=== PATIENT | male | born 1990 | race Caucasian/White ===

== ENCOUNTER 2017-04-22 05:31 | Emergency (ER) | payer BC, MEDICAID ==
[2017-04-22] MEDS ORDERED: Sodium Chloride 0.9% 10 ML Syringe FLUSH PRN (05:36)
[2017-04-22] MEDS ORDERED: Sodium Chloride 0.9% 1,000 ML IV ONE (05:39)
[2017-04-22] MEDS ORDERED: HYDROmorphone 1 MG/ML Syringe IVPUSH ONE ×3 (05:39→08:53)
[2017-04-22] MEDS ORDERED: Ondansetron 4 MG/2 ML SDV IVPUSH ONE (05:39)
[2017-04-22] MEDS ORDERED: Ketorolac 30 MG/ML SDV IVPUSH ONE (06:24)
[2017-04-22 06:32] LABS: CHLORIDE,CL 103 mmol/L (98-107); SODIUM,NA 141 mmol/L (136-145)
--- NOTE | 2017-04-22 07:12 | EDM.PDOC ---
ED HPI GENERAL MEDICAL PROBLEM - General Chief Complaint: Genitourinary Problem Stated Complaint: Abdominal Pain Time Seen by Provider: 04/22/17 05:31 - History of Present Illness INITIAL COMMENTS - FREE TEXT/NARRATIVE: DICTATED BY ISAMAR ELKINS PA-C Lower Abdomen Pain Score (Numeric/FACES): 9 - Related Data Allergies Allergy/AdvReac Type Severity Reaction Status Date / Time yvan Allergy Rash Verified 04/22/17 05:32 Home Meds: Home Meds . [No Known Home Meds] 04/22/17 [History] Past Medical History Genitourinary History: Reports: Other (See Below) Other Genitourinary History: Congenital Kidney Problem Psychiatric History: Reports: Suicide Attempt Social & Family History - Tobacco Use Smoking Status *Q: Never Smoker - Recreational Drug Use Recreational Drug Use: No ED ROS GENERAL - Review of Systems Review Of Systems: See Below (DICTATED BY ISAMAR ELKINS PA-C) ED EXAM, RENAL/ - Physical Exam Exam: See Below (DICTATED BY ISAMAR ELKINS PA-C) Course - Vital Signs Last Recorded V/S: Last Vital Signs Temp 35.7 C 04/22/17 06:50 Pulse 95 04/22/17 06:50 Resp 18 04/22/17 06:50 BP 148/98 H 04/22/17 06:50 Pulse Ox 99 04/22/17 06:50 - Orders/Labs/Meds Orders: Active Orders 24 hr Category Date Time Status Bladder Scan [RC] ONETIME Care 04/22/17 08:53 Active DC Knight Catheter [Urinary Catheter Removal] [RC] Per Care 04/22/17 09:12 Active Unit Routine Abdomen Pelvis wo Cont [CT] Stat Exams 04/22/17 06:48 Taken Sodium Chloride 0.9% [Normal Saline] 1,000 ml Med 04/22/17 09:00 Active IV ASDIRECTED Sodium Chloride 0.9% [Saline Flush] Med 04/22/17 05:36 Active 10 ml FLUSH ASDIRECTED PRN Peripheral IV Insertion Adult [OM.PC] Routine Oth 04/22/17 05:38 Ordered Medication Orders Sodium Chloride (Normal Saline) 1,000 mls @ 999 mls/hr IV ASDIRECTED JOSE ANTONIO Last Admin: 04/22/17 09:06 Dose: 999 mls/hr Sodium Chloride (Saline Flush) 10 ml FLUSH ASDIRECTED PRN PRN Reason: Keep Vein Open Last Admin: 04/22/17 05:56 Dose: 10 ml Labs: Laboratory Tests 04/22/17 04/22/17 04/22/17 Range/Units 05:59 05:59 05:59 WBC 7.2 (4.0-10.0) x10^3/uL RBC 5.08 (4.5-6.0) x10^6/uL Hgb 15.6 (14.0-18.0) g/dL Hct 43.6 (40.0-52.0) % MCV 85.8 (78.0-93.0) fL MCH 30.7 (26.0-32.0) pg MCHC 35.8 (32.0-36.0) g/dL RDW Coeff of Scotty 12.5 (10.0-15.0) % Plt Count 283 (130-400) x10^3/uL Neut % (Auto) 47.6 L (50.0-80.0) % Lymph % (Auto) 38.9 (25.0-50.0) % [place] % (Auto) 10.7 (2.0-11.0) % Eos % (Auto) 2.1 (0.0-4.0) % Baso % (Auto) 0.7 (0.2-1.2) % PT 10.5 (10.0-12.8) SEC INR 0.9 L (2.0-3.5) Sodium 141 (136-145) mmol/L Potassium 3.5 (3.5-5.1) mmol/L Chloride 103 (98-107) mmol/L Carbon Dioxide 23 (21-32) mmol/L BUN 17 (7-18) mg/dL Creatinine 1.3 (0.70-1.30) mg/dL Est Cr Clr Drug Dosing TNP Estimated GFR (MDRD) > 60 Glucose 104 (74-106) mg/dL Calcium 8.2 L (8.5-10.1) mg/dL Corrected Calcium 8.12 L (8.5-10.1) mg/dL Total Bilirubin 0.5 (0.2-1.0) mg/dL AST 21 (15-37) U/L ALT 43 (16-63) U/L Alkaline Phosphatase 97 (46-116) U/L C-Reactive Protein 0.8 (<=0.9) mg/dL Total Protein 7.8 (6.4-8.2) g/dL Albumin 4.1 (3.4-5.0) g/dL Globulin 3.7 Albumin/Globulin Ratio 1.11 Urine Color (YELLOW) Urine Appearance (CLEAR) Urine pH (5.0-8.0) Ur Specific [place] Urine Protein (NEGATIVE) mg/dL Urine Glucose (UA) (NEGATIVE) mg/dL Urine Ketones (NEGATIVE) mg/dL Urine Occult Blood (NEGATIVE) Urine Nitrite (NEGATIVE) Urine Bilirubin (NEGATIVE) Urine Urobilinogen (0.2) EU/dL Ur Leukocyte Esterase (NEGATIVE) Urine RBC (NOT SEEN) /HPF Urine WBC (NOT SEEN) /HPF Ur Squamous Epith Cells (NEGATIVE) /HPF Ur Renal Epithelial Cell (NEGATIVE) /HPF Urine Bacteria (NEGATIVE) /HPF Epithelial Casts Urine Mucus (NEGATIVE) /LPF 04/22/17 Range/Units 06:30 WBC (4.0-10.0) x10^3/uL RBC (4.5-6.0) x10^6/uL Hgb (14.0-18.0) g/dL Hct (40.0-52.0) % MCV (78.0-93.0) fL MCH (26.0-32.0) pg MCHC (32.0-36.0) g/dL RDW Coeff of Scotty (10.0-15.0) % Plt Count (130-400) x10^3/uL Neut % (Auto) (50.0-80.0) % Lymph % (Auto) (25.0-50.0) % [place] % (Auto) (2.0-11.0) % Eos % (Auto) (0.0-4.0) % Baso % (Auto) (0.2-1.2) % PT (10.0-12.8) SEC INR (2.0-3.5) Sodium (136-145) mmol/L Potassium (3.5-5.1) mmol/L Chloride (98-107) mmol/L Carbon Dioxide (21-32) mmol/L BUN (7-18) mg/dL Creatinine (0.70-1.30) mg/dL Est Cr Clr Drug Dosing Estimated GFR (MDRD) Glucose (74-106) mg/dL Calcium (8.5-10.1) mg/dL Corrected Calcium (8.5-10.1) mg/dL Total Bilirubin (0.2-1.0) mg/dL AST (15-37) U/L ALT (16-63) U/L Alkaline Phosphatase (46-116) U/L C-Reactive Protein (<=0.9) mg/dL Total Protein (6.4-8.2) g/dL Albumin (3.4-5.0) g/dL Globulin Albumin/Globulin Ratio Urine Color Dark yellow H (YELLOW) Urine Appearance Cloudy H (CLEAR) Urine pH 5.5 (5.0-8.0) Ur Specific [place] >=1.030 Urine Protein 100 H (NEGATIVE) mg/dL Urine Glucose (UA) Negative (NEGATIVE) mg/dL Urine Ketones Negative (NEGATIVE) mg/dL Urine Occult Blood Large H (NEGATIVE) Urine Nitrite Negative (NEGATIVE) Urine Bilirubin Small H (NEGATIVE) Urine Urobilinogen 1.0 (0.2) EU/dL Ur Leukocyte Esterase Negative (NEGATIVE) Urine RBC 50-75 H (NOT SEEN) /HPF Urine WBC 0-5 (NOT SEEN) /HPF Ur Squamous Epith Cells Moderate H (NEGATIVE) /HPF Ur Renal Epithelial Cell Rare H (NEGATIVE) /HPF Urine Bacteria Not seen (NEGATIVE) /HPF Epithelial Casts Few Urine Mucus Moderate H (NEGATIVE) /LPF Meds: Medications Generic Name Dose Route Start Last Admin Trade Name Freq PRN Reason Stop Dose Admin Sodium Chloride 1,000 mls @ 999 mls/hr 04/22/17 09:00 04/22/17 09:06 Normal Saline IV 999 mls/hr ASDIRECTED JOSE ANTONIO Administration Sodium Chloride 10 ml 04/22/17 05:36 04/22/17 05:56 Saline Flush FLUSH 10 ml ASDIRECTED PRN Administration Keep Vein Open Discontinued Medications Generic Name Dose Route Start Last Admin Trade Name Freq PRN Reason Stop Dose Admin Hydromorphone HCl 1 mg 04/22/17 05:39 04/22/17 05:55 Dilaudid IVPUSH 04/22/17 05:40 1 mg ONETIME ONE Administration Hydromorphone HCl 1 mg 04/22/17 06:24 04/22/17 06:31 Dilaudid IVPUSH 04/22/17 06:25 1 mg ONETIME ONE Administration Hydromorphone HCl 1 mg 04/22/17 08:53 04/22/17 09:06 Dilaudid IVPUSH 04/22/17 08:54 1 mg ONETIME ONE Administration Sodium Chloride 1,000 mls @ 1,000 mls/hr 04/22/17 05:39 04/22/17 05:52 Normal Saline IV 04/22/17 06:38 1,000 mls/hr .BOLUS ONE Administration Ketorolac Tromethamine 30 mg 04/22/17 06:24 04/22/17 06:31 Toradol IVPUSH 04/22/17 06:25 30 mg ONETIME ONE Administration Ondansetron HCl 4 mg 04/22/17 05:39 04/22/17 05:55 Zofran IVPUSH 04/22/17 05:40 4 mg ONETIME ONE Administration - Radiology Interpretation Free Text/Narrative:: See scanned report in EMR CT Results Date: 04/22/17 CT Results Time: 08:36 Departure - Departure Time of Disposition: 09:29 Disposition: DC/Tfer to Acute Hospital 02 Condition: good Clinical Impression: Ureteral stone with hydronephrosis, Encounter for Knight catheter fitting and adjustment, Pelvic pain in male - Discharge Information Referrals: PCP,None [Primary Care Provider] - Forms: Interfacility Transfer FACUNDO MLP Sign Off - Signature Requirements MLP Sign Off: Yes ED Communication - ED Communication Date/Time Date: 04/22/17 Time Called: 09:06 - Discussed Case With (1) Discussed Case With (1): Admitting Provider Person/s Notified (1): Dane Banuelos - Conversation Summary Admitting Provider Agreed to Patient's Admission: Yes Patient Aware of Amendments fo Care Plan: Yes Summary Comment: Discussed case with Urology. Patient wishes to be sent to [place] for immediate intervention of kidney stone. - Problem List Review Problem List Initiated/Reviewed/Updated: Yes - My Orders Last 24 Hours: My Active Orders 04/22/17 08:53 Bladder Scan [RC] ONETIME 04/22/17 09:00 Sodium Chloride 0.9% [Normal Saline] 1,000 ml IV ASDIRECTED 04/22/17 09:12 DC Knight Catheter [Urinary Catheter Removal] [RC] Per Unit Routine - Assessment/Plan Last 24 Hours: My Active Orders 04/22/17 08:53 Bladder Scan [RC] ONETIME 04/22/17 09:00 Sodium Chloride 0.9% [Normal Saline] 1,000 ml IV ASDIRECTED 04/22/17 09:12 DC Knight Catheter [Urinary Catheter Removal] [RC] Per Unit Routine
[2017-04-22] MEDS ORDERED: Sodium Chloride 0.9% 1,000 ML IV SCH (09:00)
[2017-04-22 09:57] VITALS: BP 140/82
--- NOTE | 2017-05-11 08:27 | ER ---
Date of Service: 04/22/2017 SUBJECTIVE: Daniel presented to the emergency room with complaints of abdominal pain. He also states that he feels as though he is unable to void. He states that the discomfort was acute in onset and awoke him from sleep. He states that the discomfort is located primarily on the left side of his abdomen and radiates into his groin area. The patient states he has not ever experienced discomfort like this in the past. PAST MEDICAL HISTORY: None. MEDICATIONS: None. ALLERGIES: To yvan. REVIEW OF SYSTEMS: General: No fever or chills. HEENT: No sore throat, rhinorrhea, or congestion. Respiratory: No shortness of breath. Cardiac: Denies any substernal chest pain. No jaw, arm, neck, or back pain. GI/: Complaints of left-sided abdominal pain with radiation into his groin and inability to void. Musculoskeletal: No myalgias or arthralgias. PHYSICAL EXAMINATION: General: This is a 27-year-old male patient, who is in no acute distress. Vital Signs: Blood pressure is 132/88, pulse rate is 92, respiratory rate 16, O2 saturations 99%. Skin: Warm, pink, and dry. HEENT: Head is normocephalic, atraumatic. Mouth, oral mucosa is moist. Lungs: Clear to auscultation. Heart: Regular rate and rhythm. Abdomen: Soft, tender in the hypogastric area. There is no masses noted. There is no hepatosplenomegaly noted. Extremities: Without edema. Neurologic: He is alert and oriented, answers all questions appropriately. His speech is fluent. His gait is within normal limits. LABORATORY DATA: WBC is 7.2, hemoglobin is 15.6, platelets are 283. PT is 10.5, INR is 0.9. Sodium is 141, potassium is 3.5, chloride is 103, bicarb is 23, BUN is 17, creatinine is 1.3. GFR is greater than 60. Glucose is 104, calcium is 8.2, corrected calcium is 8.12, total bilirubin is 0.5. AST is 21, ALT is 43, alkaline phosphatase is 97. C-reactive protein is 0.8. Total protein is 7.8. Urinalysis shows specific gravity of 1.030. Did have 100 protein, did have negative ketones and glucose. Did have large occult blood, small bilirubin, negative leukocyte esterase, and nitrites. EMERGENCY ROOM COURSE: IV access was established. He was given IV Dilaudid, Zofran, and Toradol 30 mg IV. He was also given Zofran for nausea. I did perform a bladder scan, which did show several 100 mL of urine in his bladder. Subsequently, a Knight catheter was placed with clear urine return, but minimal improvement in his discomfort. CT scan of the patient's abdomen and pelvis was obtained. Please refer to Odilon Freed's documentation regarding the results of the CT scan and disposition of this patient. ASSESSMENT: Urinary retention and right-sided abdominal pain. PLAN: Again, please refer to Odilon Freed's dictation regarding the disposition of this patient. MWK: 05/10/2017 22:37:22 MODL: 05/10/2017 22:52:24 /[id number]
== END 2017-04-22 10:40 | disposition short-term general hospital (02) ==
LOC: VM.ED 05:31
DX: R33.9 Retention of urine, unspecified (principal); R10.9 Unspecified abdominal pain
CPT/HCPCS: 36415; 74176; 80053; 81001; 85025; 85610; 86140; 96361; 96374; 96375; 96376; 99284; 99285; J1170; J1885; J2405; J7030; J7050

== ENCOUNTER 2018-02-01 17:51 | Emergency (ER) | payer MEDICAID ==
--- NOTE | 2018-02-01 18:36 | EDM.PDOC ---
ED HPI GENERAL MEDICAL PROBLEM - General Chief Complaint: Behavioral/Psych Time Seen by Provider: 02/01/18 18:02 Source of Information: Reports: Patient History Limitations: Reports: No Limitations - History of Present Illness INITIAL COMMENTS - FREE TEXT/NARRATIVE: Pt. presents to ER with complaints of visual and sensory hallucinations, as well as self-harming behavior. He is diagnosed with schozotypal personality disorder, major depressive disorder, and dependent personality disorder. Pt. states that he has a long history of both auditory and visual hallucinations, with the recent increase in the frequency and severity of the hallucinations. He states that he felt there was "something in his L forearm" and he used a razor blade to attempt to remove it. Pt. states that he is currently on olanzapine 20mg every evening, as well as lexapro 20mg daily and trazadone 25mg at bedtime. He Denies any suicidal ideation, but feels at though he is at risk for self harm if allowed to go home on his own, stating he is afraid he will "take it too far." Pt. sees CASSIE Rios at [facility] in [place], as well as Dr. Migdalia DO who is a psychiatrist who sees patients in [place] and [place]. The pt. has only seen him once, last week, to establish care. Pt. states that he has been experiencing symptoms of schizotypal behavior for approx 10 years, but is states the the symptoms are getting much worse, happening several times a week, and with increased severity. He was seen in our ER in June with a similar event. At that time he had cut his wrist but he did not feel as though he was a threat any longer. He states that at that time he was on Risperdal. He was subsequently transitioned to olanzapine after that event. He denies any recent illness, cough, fever or chills. He denies any nausea, vomiting or diarrhea. He denies any headache or other neurological symptoms. Pt. states that he has never had inpatient psychiatric care in past, and started treatment for his psychiatric problems this year, despite having hallucinations for approx. 10 years. Onset: Today Onset Date: 02/01/18 Onset Time: 18:56 - Related Data Allergies Allergy/AdvReac Type Severity Reaction Status Date / Time bee venom protein (honey bee) Allergy Anaphylactic Verified 02/01/18 18:33 Shock yvan Allergy Rash Verified 02/01/18 18:06 Home Meds: Home Meds Escitalopram Oxalate [Lexapro] 20 mg PO DAILY 10/09/17 [History] risperiDONE [RisperiDAL] 1 mg pe DAILY 10/09/17 [History] OLANZapine [ZyPREXA] 20 mg PO DAILY 02/01/18 [History] Past Medical History Genitourinary History: Reports: Other (See Below) Other Genitourinary History: Congenital Kidney Problem Psychiatric History: Reports: Anxiety, Depression, Suicide Attempt, Suicidal Ideation Other Psychiatric History: personality disorder. schizotypal personality disorder - Past Surgical History HEENT Surgical History: Reports: Adenoidectomy, Tonsillectomy Male Surgical History: Reports: Nephrectomy Social & Family History - Tobacco Use Smoking Status *Q: Never Smoker - Recreational Drug Use Recreational Drug Use: No ED ROS GENERAL - Review of Systems Review Of Systems: See Below Constitutional: Reports: No Symptoms HEENT: Reports: No Symptoms Respiratory: Reports: No Symptoms Cardiovascular: Reports: No Symptoms Endocrine: Reports: No Symptoms GI/Abdominal: Reports: No Symptoms : Reports: No Symptoms Musculoskeletal: Reports: No Symptoms Skin: Reports: No Symptoms Neurological: Reports: No Symptoms Psychiatric: Reports: Anxiety, Depression, Hallucinations Hematologic/Lymphatic: Reports: No Symptoms Immunologic: Reports: No Symptoms ED EXAM, GENERAL - Physical Exam Exam: See Below Exam Limited By: No Limitations General Appearance: Alert, WD/WN, No Apparent Distress Eye Exam: Bilateral Eye: EOMI, Normal Fundi, Normal Inspection, PERRL Ears: Normal External Exam, Normal TMs Nose: Normal Inspection, Normal Mucosa, No Blood Throat/Mouth: Normal Teeth, Normal Gums, Normal Voice, No Airway Compromise Head: Atraumatic, Normocephalic Neck: Normal Inspection, Supple, Non-Tender, Full Range of Motion Respiratory/Chest: No Respiratory Distress, Lungs Clear, Normal Breath Sounds, No Accessory Muscle Use, Chest Non-Tender Cardiovascular: Normal Peripheral Pulses, Regular Rate, Rhythm, No Edema, No Gallop, No JVD, No Murmur, No Rub GI/Abdominal: Normal Bowel Sounds, Soft, Non-Tender, No Organomegaly, No Distention, No Abnormal Bruit, No Mass (Male) Exam: Deferred Rectal (Males) Exam: Deferred Back Exam: Normal Inspection, Full Range of Motion Extremities: Normal Inspection, Normal Range of Motion, Non-Tender, Normal Capillary Refill, No Pedal Edema Neurological: Alert, Oriented, CN II-XII Intact, Normal Cognition, Normal Gait, Normal Reflexes, No Motor/Sensory Deficits Psychiatric: Normal Affect, Normal Mood, Anxious, Other (insight is normal; is concerned about his health and volunteers to get health. Is not resistive to care and feels he needs inpatient care.) Skin Exam: Warm, Dry, Intact, Normal Color, No Rash Lymphatic: No Adenopathy Course - Vital Signs Last Recorded V/S: Last Vital Signs Temp 36.4 C 02/01/18 17:55 Pulse 89 02/01/18 17:55 Resp 18 02/01/18 17:55 BP 149/82 H 02/01/18 17:55 Pulse Ox 95 02/01/18 17:55 - Orders/Labs/Meds Labs: Laboratory Tests 02/01/18 02/01/18 02/01/18 Range/Units 18:19 18:38 18:45 WBC 8.6 (4.0-10.0) x10^3/uL RBC 5.18 (4.5-6.0) x10^6/uL Hgb 15.6 (14.0-18.0) g/dL Hct 44.8 (40.0-52.0) % MCV 86.5 (78.0-93.0) fL MCH 30.1 (26.0-32.0) pg MCHC 34.8 (32.0-36.0) g/dL RDW Coeff of Scotty 13.8 (10.0-15.0) % Plt Count 324 (130-400) x10^3/uL Neut % (Auto) 54.6 (50.0-80.0) % Lymph % (Auto) 32.3 (25.0-50.0) % [place] % (Auto) 10.4 (2.0-11.0) % Eos % (Auto) 2.2 (0.0-4.0) % Baso % (Auto) 0.5 (0.2-1.2) % Sodium (136-145) mmol/L Potassium (3.5-5.1) mmol/L Chloride (98-107) mmol/L Carbon Dioxide (21-32) mmol/L BUN (7-18) mg/dL Creatinine (0.70-1.30) mg/dL Est Cr Clr Drug Dosing Estimated GFR (MDRD) Glucose (74-106) mg/dL Calcium (8.5-10.1) mg/dL Corrected Calcium (8.5-10.1) mg/dL Total Bilirubin (0.2-1.0) mg/dL AST (15-37) U/L ALT (16-63) U/L Alkaline Phosphatase (46-116) U/L Total Protein (6.4-8.2) g/dL Albumin (3.4-5.0) g/dL Globulin Albumin/Globulin Ratio TSH, Ultra Sensitive (0.358-3.74) uIU/mL Urine Color Yellow (YELLOW) Urine Appearance Clear (CLEAR) Urine pH 6.0 (5.0-8.0) Ur Specific [place] 1.025 Urine Protein 30 H (NEGATIVE) mg/dL Urine Glucose (UA) Negative (NEGATIVE) mg/dL Urine Ketones Negative (NEGATIVE) mg/dL Urine Occult Blood Negative (NEGATIVE) Urine Nitrite Negative (NEGATIVE) Urine Bilirubin Negative (NEGATIVE) Urine Urobilinogen 0.2 (0.2) EU/dL Ur Leukocyte Esterase Negative (NEGATIVE) Urine RBC 0-5 (NOT SEEN) /HPF Urine WBC 0-5 (NOT SEEN) /HPF Ur Squamous Epith Cells Not seen (NEGATIVE) /HPF Urine Bacteria Rare (NEGATIVE) /HPF Urine Mucus Few H (NEGATIVE) /LPF Urine Opiates Screen Negative (NEAGTIVE) Ur Buprenorphine Scrn Negative (NEGATIVE) Ur Oxycodone Screen Negative (NEGATIVE) Urine Methadone Screen Negative (NEGATIVE) Ur Barbiturates Screen Negative (NEGATIVE) Ur Tricyclics Screen Negative (NEGATIVE) Ur Amphetamine Screen Negative (NEGATIVE) U Methamphetamines Scrn Negative (NEGATIVE) Urine MDMA Screen Negative (NEGATIVE) U Benzodiazepines Scrn Negative (NEGATIVE) U Cocaine Metab Screen Negative (NEGATIVE) U Marijuana (THC) Screen Negative (NEGATIVE) Ethyl Alcohol (0-3) mg/dL 02/01/18 Range/Units 18:45 WBC (4.0-10.0) x10^3/uL RBC (4.5-6.0) x10^6/uL Hgb (14.0-18.0) g/dL Hct (40.0-52.0) % MCV (78.0-93.0) fL MCH (26.0-32.0) pg MCHC (32.0-36.0) g/dL RDW Coeff of Scotty (10.0-15.0) % Plt Count (130-400) x10^3/uL Neut % (Auto) (50.0-80.0) % Lymph % (Auto) (25.0-50.0) % [place] % (Auto) (2.0-11.0) % Eos % (Auto) (0.0-4.0) % Baso % (Auto) (0.2-1.2) % Sodium 141 (136-145) mmol/L Potassium 4.1 (3.5-5.1) mmol/L Chloride 104 (98-107) mmol/L Carbon Dioxide 27 (21-32) mmol/L BUN 21 H (7-18) mg/dL Creatinine 1.3 (0.70-1.30) mg/dL Est Cr Clr Drug Dosing TNP Estimated GFR (MDRD) > 60 Glucose 89 (74-106) mg/dL Calcium 8.7 (8.5-10.1) mg/dL Corrected Calcium 8.70 (8.5-10.1) mg/dL Total Bilirubin 0.3 (0.2-1.0) mg/dL AST 18 (15-37) U/L ALT 34 (16-63) U/L Alkaline Phosphatase 126 H (46-116) U/L Total Protein 8.5 H (6.4-8.2) g/dL Albumin 4.0 (3.4-5.0) g/dL Globulin 4.5 Albumin/Globulin Ratio 0.89 TSH, Ultra Sensitive 1.199 (0.358-3.74) uIU/mL Urine Color (YELLOW) Urine Appearance (CLEAR) Urine pH (5.0-8.0) Ur Specific [place] Urine Protein (NEGATIVE) mg/dL Urine Glucose (UA) (NEGATIVE) mg/dL Urine Ketones (NEGATIVE) mg/dL Urine Occult Blood (NEGATIVE) Urine Nitrite (NEGATIVE) Urine Bilirubin (NEGATIVE) Urine Urobilinogen (0.2) EU/dL Ur Leukocyte Esterase (NEGATIVE) Urine RBC (NOT SEEN) /HPF Urine WBC (NOT SEEN) /HPF Ur Squamous Epith Cells (NEGATIVE) /HPF Urine Bacteria (NEGATIVE) /HPF Urine Mucus (NEGATIVE) /LPF Urine Opiates Screen (NEAGTIVE) Ur Buprenorphine Scrn (NEGATIVE) Ur Oxycodone Screen (NEGATIVE) Urine Methadone Screen (NEGATIVE) Ur Barbiturates Screen (NEGATIVE) Ur Tricyclics Screen (NEGATIVE) Ur Amphetamine Screen (NEGATIVE) U Methamphetamines Scrn (NEGATIVE) Urine MDMA Screen (NEGATIVE) U Benzodiazepines Scrn (NEGATIVE) U Cocaine Metab Screen (NEGATIVE) U Marijuana (THC) Screen (NEGATIVE) Ethyl Alcohol < 3 (0-3) mg/dL Departure - Departure Time of Disposition: 21:40 Disposition: DC/Tfer to Psych Hosp/Unit 65 Clinical Impression: Schizotypal personality disorder, Anxiety, Self-harm, Depressive disorder, Hallucinations - Discharge Information Referrals: Trini Gray [employer]PER[employer]ILN [Primary Care Provider] - Forms: ED Department Discharge, Interfacility Transfer EMTALA
[2018-02-01 19:25] LABS: CHLORIDE,CL 104 mmol/L (98-107); SODIUM,NA 141 mmol/L (136-145)
== END 2018-02-01 21:39 ==
LOC: VM.ED 17:51
DX: F21 Schizotypal disorder (principal); Z91.018 Allergy to other foods; Z91.030 Bee allergy status; Z79.899 Other long term (current) drug therapy
CPT/HCPCS: 36415; 80053; 80305; 81001; 84443; 85025; 99284; G0480

== ENCOUNTER 2019-02-14 21:26 | Emergency (ER) | payer MEDICAID ==
--- NOTE | 2019-02-14 22:32 | EDM.PDOC ---
ED HPI GENERAL MEDICAL PROBLEM - General Chief Complaint: Abdominal Pain Stated Complaint: abdominal pain Time Seen by Provider: 02/14/19 21:50 Source of Information: Reports: Patient History Limitations: Reports: No Limitations - History of Present Illness INITIAL COMMENTS - FREE TEXT/NARRATIVE: Patient comes in the emergency department with severe sudden onset of left upper quadrant pain starting approximately 6 hours ago. Patient just recently had a laparoscopic Chapin procedure completed approximately 2 weeks ago. He states healing process has been relatively normal without any complications thus far. The sudden onset this afternoon of abdominal discomfort is reproducible and palpable. Also states it does cause nausea and guarding of the abdominal cavity. She denies having any issues with bowel movements. He also states that he does not have any concerns with urinary frequency, hesitancy or bleeding during urination. No recent fevers but did have chills yesterday. Onset: Sudden Quality: Reports: Sharp, Throbbing Improves with: Reports: Immobilization Worsens with: Reports: Movement Associated Symptoms: Reports: Nausea/Vomiting Left Upper Abdomen Pain Score (Numeric/FACES): 7 - Related Data Allergies Allergy/AdvReac Type Severity Reaction Status Date / Time bee venom protein (honey bee) Allergy Anaphylactic Verified 02/14/19 21:44 Shock yvan Allergy Rash Verified 02/14/19 21:44 Home Meds: Home Meds Escitalopram [Lexapro] 20 mg PO DAILY 02/14/19 [History] OLANZapine [ZyPREXA] 5 mg PO DAILY 02/14/19 [History] Past Medical History HEENT History: Reports: Impaired Vision Cardiovascular History: Reports: None Respiratory History: Reports: None Gastrointestinal History: Reports: Other (See Below) Other Gastrointestinal History: RECENT HX OF NAUSEA AND VOMITING Genitourinary History: Reports: Hydronephrosis, Other (See Below) Other Genitourinary History: Congenital Kidney Problem Musculoskeletal History: Reports: Back Pain, Chronic Neurological History: Reports: Headaches, Chronic, Migraines Psychiatric History: Reports: Anxiety, Depression, Schizophrenia, Suicide Attempt, Suicidal Ideation Other Psychiatric History: personality disorder. schizotypal personality disorder Endocrine/Metabolic History: Reports: Obesity/BMI 30+ Hematologic History: Reports: None Immunologic History: Reports: None Oncologic (Cancer) History: Reports: None - Past Surgical History Head Surgeries/Procedures: Reports: None HEENT Surgical History: Reports: Adenoidectomy, Tonsillectomy Male Surgical History: Reports: Nephrectomy Social & Family History - Tobacco Use Smoking Status *Q: Never Smoker ED ROS GENERAL - Review of Systems Review Of Systems: See Below Constitutional: Reports: No Symptoms HEENT: Reports: No Symptoms Respiratory: Reports: No Symptoms Cardiovascular: Reports: No Symptoms GI/Abdominal: Reports: Abdominal Pain : Reports: No Symptoms Musculoskeletal: Reports: No Symptoms Skin: Reports: No Symptoms Neurological: Reports: No Symptoms Psychiatric: Reports: No Symptoms Hematologic/Lymphatic: Reports: No Symptoms Immunologic: Reports: No Symptoms ED EXAM, GENERAL - Physical Exam Exam: See Below Exam Limited By: No Limitations General Appearance: Alert, WD/WN, No Apparent Distress Head: Atraumatic, Normocephalic Neck: Normal Inspection, Supple, Non-Tender, Full Range of Motion Respiratory/Chest: No Respiratory Distress, Lungs Clear, No Accessory Muscle Use , Chest Non-Tender Cardiovascular: Normal Peripheral Pulses, Regular Rate, Rhythm GI/Abdominal: Distended, Guarding, Tender, Abnormal Bowel Sounds Back Exam: Normal Inspection, Full Range of Motion Extremities: Normal Inspection, Normal Range of Motion, Normal Capillary Refill Neurological: Alert, Oriented, Normal Gait Psychiatric: Normal Affect, Normal Mood Skin Exam: Warm, Dry, Intact, Normal Color Course - Vital Signs Last Recorded V/S: Last Vital Signs Temp 36.9 C 02/14/19 21:30 Pulse 122 H 02/14/19 21:30 Resp 20 02/14/19 21:30 BP 135/85 02/14/19 21:30 Pulse Ox 97 02/14/19 21:30 - Orders/Labs/Meds Orders: Active Orders 24 hr Category Date Time Status Abdomen Pelvis wo Cont [CT] Stat Exams 02/14/19 22:19 Taken COMPREHENSIVE METABOLIC PN,CMP [CHEM] Stat Lab 02/14/19 22:56 Received UA RFX MARIBEL AND CULT IF INDIC [URIN] Stat Lab 02/14/19 22:51 Received Labs: Laboratory Tests 02/14/19 Range/Units 22:56 WBC 6.4 (4.0-10.0) x10^3/uL RBC 5.19 (4.5-6.0) x10^6/uL Hgb 14.8 (14.0-18.0) g/dL Hct 45.1 (40.0-52.0) % MCV 86.9 (78.0-93.0) fL MCH 28.5 (26.0-32.0) pg MCHC 32.8 (32.0-36.0) g/dL RDW Coeff of Scotty 14.1 (10.0-15.0) % Plt Count 312 (130-400) x10^3/uL Neut % (Auto) 54.6 (50.0-80.0) % Lymph % (Auto) 31.2 (25.0-50.0) % [place] % (Auto) 11.5 H (2.0-11.0) % Eos % (Auto) 1.9 (0.0-4.0) % Baso % (Auto) 0.8 (0.2-1.2) % Departure - Departure Time of Disposition: 23:30 Disposition: Home, Self-Care 01 Condition: Good Clinical Impression: Abdominal pain Qualifiers: Abdominal location: left upper quadrant Qualified Code(s): R10.12 - Left upper quadrant pain Constipation Qualifiers: Constipation type: unspecified constipation type Qualified Code(s): K59.00 - Constipation, unspecified - Discharge Information *PRESCRIPTION DRUG MONITORING PROGRAM REVIEWED*: Not Applicable *COPY OF PRESCRIPTION DRUG MONITORING REPORT IN PATIENT IVORY: Not Applicable Instructions: Constipation, Adult, Preventing Constipation After Surgery Referrals: Odilon Freed NP [Primary Care Provider] - Forms: ED Department Discharge Additional Instructions: 1. increase your water intake 2. Can take over the counter stool softeners to help alleviate bowels 3. Can also use heat to help alleviate any discomfort 4. Take OTC Tylenol and Ibuprofen as needed for pain or discomfort 5. Follow up with PCP if no relief 6. Call with any questions or concerns - My Orders Last 24 Hours: My Active Orders 02/14/19 22:19 Abdomen Pelvis wo Cont [CT] Stat 02/14/19 22:51 UA RFX MARIBEL AND CULT IF INDIC [URIN] Stat 02/14/19 22:56 COMPREHENSIVE METABOLIC PN,CMP [CHEM] Stat - Assessment/Plan Last 24 Hours: My Active Orders 02/14/19 22:19 Abdomen Pelvis wo Cont [CT] Stat 02/14/19 22:51 UA RFX MARIBEL AND CULT IF INDIC [URIN] Stat 02/14/19 22:56 COMPREHENSIVE METABOLIC PN,CMP [CHEM] Stat Assessment:: 1. abdominal pain Plan: 1. CT scan of abdomen 2. Labs completed in ER 3
[2019-02-14 23:23] LABS: CHLORIDE,CL 109 mmol/L (98-107); SODIUM,NA 146 mmol/L (136-145)
[2019-02-14 23:25] LABS: ANION GAP 12.6 mmol/L (10-20)
--- NOTE | 2019-02-15 08:14 | CT ---
[id number] CT/CT Abdomen Pelvis WO IV EXAM: CT Abdomen Pelvis WO IV CLINICAL DATA: ABDOMINAL PAIN. COMPARISON STUDY: August 21, 2018. FINDINGS: Lung bases are clear. Liver, spleen, gallbladder, pancreas, and adrenal glands are unremarkable. Post surgical changes following left nephrectomy. No bowel obstruction or inflammation. Appendix is visualized and appears normal. Large amount of retained stool within the colon. No lymphadenopathy, free fluid, or pneumoperitoneum. Scattered changes of spondylosis the spine. No fracture or osseous lesion. IMPRESSION: Large amount of retained stool within the colon. Correlate for signs of constipation. Anthony Trevino DO 02/15/19 0812 Thank you for allowing us to participate in the care of your patient.
== END 2019-02-14 23:35 | disposition home or self-care (01) ==
LOC: VM.ED 21:26
DX: K59.00 Constipation, unspecified (principal); F20.9 Schizophrenia, unspecified; Z91.030 Bee allergy status; Z79.899 Other long term (current) drug therapy
CPT/HCPCS: 36415; 74176; 80053; 81001; 85025; 99284-25

== ENCOUNTER 2019-03-27 05:31 | Emergency (ER) | payer MEDICAID ==
--- NOTE | 2019-03-27 05:55 | EDM.PDOCBH ---
ED HPI GENERAL MEDICAL PROBLEM - General Chief Complaint: Behavioral/Psych Stated Complaint: out of meds Time Seen by Provider: 03/27/19 05:40 Source of Information: Reports: Patient History Limitations: Reports: No Limitations - History of Present Illness INITIAL COMMENTS - FREE TEXT/NARRATIVE: Patient comes in with complaints of being out of his fluphenazine. He takes this for his schizo affective disorder. Has been out for a week and states the pharmacies in [facility] do not have any. He has been scratching himself and having both visual and auditory hallucinations. Says he is having thoughts of suicide but no organized plan. Does have a sister in [facility] that we will try to contact to see if she can stay with him or help him. Denies chest pain, SOB, headaches , nausea or vomiting. Is alert and oriented and is here asking for some medications that can help him with his symptoms until he can get medications. Onset: Gradual Duration: Getting Worse Location: Reports: Generalized - Related Data Allergies Allergy/AdvReac Type Severity Reaction Status Date / Time bee venom protein (honey bee) Allergy Anaphylactic Verified 03/27/19 06:07 Shock yvan Allergy Rash Verified 03/27/19 06:07 Home Meds: Home Meds Venlafaxine [Effexor XR] 150 mg PO DAILY 03/27/19 [History] diphenhydrAMINE [Benadryl] 50 mg PO DAILY 03/27/19 [History] fluPHENAZine HCl [fluPHENAZine] 5 mg PO DAILY 03/27/19 [History] Past Medical History HEENT History: Reports: Impaired Vision Cardiovascular History: Reports: None Respiratory History: Reports: None Gastrointestinal History: Reports: Other (See Below) Other Gastrointestinal History: RECENT HX OF NAUSEA AND VOMITING Genitourinary History: Reports: Hydronephrosis, Other (See Below) Other Genitourinary History: Congenital Kidney Problem Musculoskeletal History: Reports: Back Pain, Chronic Neurological History: Reports: Headaches, Chronic, Migraines Psychiatric History: Reports: Anxiety, Depression, Schizophrenia, Suicide Attempt, Suicidal Ideation Other Psychiatric History: personality disorder. schizotypal personality disorder Endocrine/Metabolic History: Reports: Obesity/BMI 30+ Hematologic History: Reports: None Immunologic History: Reports: None Oncologic (Cancer) History: Reports: None - Past Surgical History Head Surgeries/Procedures: Reports: None HEENT Surgical History: Reports: Adenoidectomy, Tonsillectomy Male Surgical History: Reports: Nephrectomy ED ROS GENERAL - Review of Systems Review Of Systems: See Below Constitutional: Reports: No Symptoms HEENT: Reports: No Symptoms Respiratory: Reports: No Symptoms Cardiovascular: Reports: No Symptoms Endocrine: Reports: No Symptoms GI/Abdominal: Reports: No Symptoms : Reports: No Symptoms Musculoskeletal: Reports: No Symptoms Skin: Reports: No Symptoms, Wound (patient has scratching wounds) Neurological: Reports: No Symptoms Psychiatric: Reports: Anxiety, Suicidal Ideation, Other (scratching himself) Hematologic/Lymphatic: Reports: No Symptoms Immunologic: Reports: No Symptoms ED EXAM, BEHAVIORAL HEALTH - Physical Exam Exam: See Below Exam Limited By: No Limitations General Appearance: Alert, WD/WN, Anxious, Mild Distress Eye Exam: Bilateral Eye: EOMI, Normal Inspection, PERRL Ears: Normal TMs Nose: Normal Inspection, Normal Mucosa, No Blood Throat/Mouth: Normal Inspection, Normal Lips, Normal Teeth, Normal Gums, Normal Oropharynx, Normal Voice, No Airway Compromise Head: Atraumatic, Normocephalic Neck: Normal Inspection, Supple, Non-Tender, Full Range of Motion Respiratory/Chest: No Respiratory Distress, Lungs Clear, Normal Breath Sounds, No Accessory Muscle Use, Chest Non-Tender Cardiovascular: Normal Peripheral Pulses, Regular Rate, Rhythm, No Edema, No Gallop, No JVD, No Murmur, No Rub GI/Abdominal: Normal Bowel Sounds, Soft, Non-Tender, No Organomegaly, No Distention, No Abnormal Bruit, No Mass Back Exam: Normal Inspection, Full Range of Motion, NT Extremities: Normal Inspection, Normal Range of Motion, Non-Tender, Normal Capillary Refill, No Pedal Edema Neurological: Alert, Normal Mood/Affect, CN II-XII Intact Psychiatric: Alert, Oriented, Suicidal Thoughts, Auditory Hallucinations, Visual Hallucinations COURSE, BEHAVIORAL HEALTH COMP - Course Vital Signs: Last Vital Signs Temp 36.3 C 03/27/19 05:40 Pulse 115 H 03/27/19 05:40 Resp 18 03/27/19 05:40 BP 151/101 H 03/27/19 05:40 Pulse Ox 99 03/27/19 05:40 Orders, Labs, Meds: Active Orders 24 hr Category Date Time Status Haloperidol Lactate [Haldol] Med 03/27/19 05:49 Once 5 mg IM STAT ONE risperiDONE [RisperiDAL] Med 03/27/19 05:49 Once 1 mg PO ONETIME ONE Medication Orders Haloperidol Lactate (Haldol) 5 mg IM STAT ONE Stop: 03/27/19 05:50 Medications Generic Name Dose Route Start Last Admin Trade Name Adilene PRN Reason Stop Dose Admin Haloperidol Lactate 5 mg 03/27/19 05:49 Haldol IM 03/27/19 05:50 STAT ONE Departure - Departure Time of Disposition: 06:47 Disposition: Home, Self-Care 01 Condition: Good Clinical Impression: Schizophrenia, Hallucinations - Discharge Information *PRESCRIPTION DRUG MONITORING PROGRAM REVIEWED*: Not Applicable *COPY OF PRESCRIPTION DRUG MONITORING REPORT IN PATIENT IVORY: Not Applicable Instructions: Living With Schizophrenia Referrals: PCP,Unobtain [Primary Care Provider] - Additional Instructions: Plan 1. Stay well hydrated 2. Try to get to [facility] today to get your medications filled so that you have them 3. Try to stay with your sister or another trusted family member or friend until your medications have started to work 4. Schedule an appointment with Odilon Freed to determine if there are other options for you when your medications are not available 5. Please call the hospital or anyone else you feel safe with if you have worsening symptoms of self harm, abuse, or suicidal thoughts 6. Call any time if you have any further questions or concerns. - Problem List & Annotations (1) Anxiety SNOMED Code(s): 14946298 Code(s): F41.9 - ANXIETY DISORDER, UNSPECIFIED Status: Acute Priority: Medium Current Visit: No (2) Hallucinations SNOMED Code(s): 1398099 Code(s): R44.3 - HALLUCINATIONS, UNSPECIFIED Status: Acute Priority: Medium Current Visit: No (3) Schizotypal personality disorder SNOMED Code(s): 09675643 Code(s): F21 - SCHIZOTYPAL DISORDER Status: Acute Priority: Medium Current Visit: No - Problem List Review Problem List Initiated/Reviewed/Updated: Yes - My Orders Last 24 Hours: My Active Orders 03/27/19 05:49 Haloperidol Lactate [Haldol] 5 mg IM STAT ONE risperiDONE [RisperiDAL] 1 mg PO ONETIME ONE - Assessment/Plan Last 24 Hours: My Active Orders 03/27/19 05:49 Haloperidol Lactate [Haldol] 5 mg IM STAT ONE risperiDONE [RisperiDAL] 1 mg PO ONETIME ONE Assessment:: schizoaffective disorder Plan: Plan 1. Stay well hydrated 2. Try to get to [facility] today to get your medications filled so that you have them 3. Try to stay with your sister or another trusted family member or friend until your medications have started to work 4. Schedule an appointment with Odilon Freed to determine if there are other options for you when your medications are not available 5. Please call the hospital or anyone else you feel safe with if you have worsening symptoms of self harm, abuse, or suicidal thoughts 6. Call any time if you have any further questions or concerns.
[2019-03-27] MEDS: Haloperidol Lactate 5 MG/ML SDV IM ONE (06:01)
[2019-03-27] MEDS: risperiDONE 1 MG Tab PO ONE (06:08)
== END 2019-03-27 06:47 | disposition home or self-care (01) ==
LOC: VM.ED 05:31
DX: F25.9 Schizoaffective disorder, unspecified (principal); F41.9 Anxiety disorder, unspecified; F32.9 Major depressive disorder, single episode, unspecified; Z91.030 Bee allergy status; Z91.018 Allergy to other foods
CPT/HCPCS: 99283; A9270-GY; J1630

== ENCOUNTER 2019-05-09 11:45 | Emergency (ER) | payer MEDICAID ==
[2019-05-09 12:00] VITALS: BP 133/88
--- NOTE | 2019-05-09 12:03 | EDM.PDOC ---
ED HPI GENERAL MEDICAL PROBLEM - General Chief Complaint: Behavioral/Psych Time Seen by Provider: 05/09/19 11:48 Source of Information: Reports: Patient History Limitations: Reports: No Limitations - History of Present Illness INITIAL COMMENTS - FREE TEXT/NARRATIVE: Pt. presents to ER via EMS. Pt. has a history of schizoaffective disorder and for the past 2 weeks he has been experiencing increased auditory hallucinations , self-harm, and suicidal ideation. Pt. receives psychiatric care through telemedicine. He reported his symptoms and EMS was subsequently summoned to transport the patient to the ER. He states that he would cut himself with a knife to commit suicide. Pt. offers no other complaint. He states that he has no physical complaints. Denies any chest pain or shortness of breath. No headache, nausea, vomiting, diarrhea, or abdominal pain. Denies any neurological symptoms. Pt. states that there have not been any recent changes to his medications. He states that he has been taking them as prescribed. Denies any street drug use. He is a non-smoker and very occasional drinker. He has been cutting and scratching himself and has been increasingly depressed. 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 Onset: Today Onset Date: 05/09/19 - Related Data Allergies Allergy/AdvReac Type Severity Reaction Status Date / Time bee venom protein (honey bee) Allergy Anaphylactic Verified 05/09/19 12:16 Shock yvan Allergy Rash Verified 05/09/19 12:16 Home Meds: Home Meds Venlafaxine [Effexor XR] 150 mg PO DAILY 03/27/19 [History] diphenhydrAMINE [Benadryl] 50 mg PO DAILY 03/27/19 [History] fluPHENAZine HCl [fluPHENAZine] 1 mg PO BEDTIME 03/27/19 [History] Venlafaxine [Effexor] 75 mg PO DAILY 05/09/19 [History] Past Medical History HEENT History: Reports: Impaired Vision Cardiovascular History: Reports: None Respiratory History: Reports: None Gastrointestinal History: Reports: Other (See Below) Other Gastrointestinal History: RECENT HX OF NAUSEA AND VOMITING Genitourinary History: Reports: Hydronephrosis, Other (See Below) Other Genitourinary History: Congenital Kidney Problem Musculoskeletal History: Reports: Back Pain, Chronic Neurological History: Reports: Headaches, Chronic, Migraines Psychiatric History: Reports: Anxiety, Depression, Schizophrenia, Suicide Attempt, Suicidal Ideation Other Psychiatric History: personality disorder. schizotypal personality disorder Endocrine/Metabolic History: Reports: Obesity/BMI 30+ Hematologic History: Reports: None Immunologic History: Reports: None Oncologic (Cancer) History: Reports: None - Past Surgical History Head Surgeries/Procedures: Reports: None HEENT Surgical History: Reports: Adenoidectomy, Tonsillectomy Male Surgical History: Reports: Nephrectomy ED ROS GENERAL - Review of Systems Review Of Systems: See Below Constitutional: Reports: No Symptoms HEENT: Reports: No Symptoms Respiratory: Reports: No Symptoms Endocrine: Reports: No Symptoms GI/Abdominal: Reports: No Symptoms : Reports: No Symptoms Musculoskeletal: Reports: No Symptoms Skin: Reports: No Symptoms Neurological: Reports: No Symptoms Psychiatric: Reports: No Symptoms Hematologic/Lymphatic: Reports: No Symptoms Immunologic: Reports: No Symptoms ED EXAM, GENERAL - Physical Exam Exam: See Below Exam Limited By: No Limitations General Appearance: Alert, WD/WN, No Apparent Distress Eye Exam: Bilateral Eye: EOMI, PERRL Ears: Normal External Exam, Normal Canal, Hearing Grossly Normal, Other ( partially obstructed with cerumen bilaterally) Nose: Normal Inspection, No Blood Throat/Mouth: Normal Inspection, Normal Lips, Normal Teeth, Normal Gums, Normal Oropharynx, Normal Voice, No Airway Compromise Head: Atraumatic, Normocephalic Neck: Normal Inspection, Supple, Non-Tender Respiratory/Chest: No Respiratory Distress, Lungs Clear, Normal Breath Sounds, No Accessory Muscle Use, Chest Non-Tender Cardiovascular: Normal Peripheral Pulses, Regular Rate, Rhythm, No Edema, No JVD , No Murmur, No Rub Peripheral Pulses: 4+: Radial (R) GI/Abdominal: Normal Bowel Sounds, Soft, Non-Tender, No Organomegaly, No Distention (Male) Exam: Deferred Rectal (Males) Exam: Deferred Back Exam: Normal Inspection, Full Range of Motion Extremities: Normal Range of Motion, Non-Tender, No Pedal Edema, Normal Capillary Refill, Other (superficial abrasions and lacerations noted to forearms.) Neurological: Alert, Oriented, CN II-XII Intact, Normal Cognition, Normal Gait, Normal Reflexes, No Motor/Sensory Deficits Psychiatric: Normal Affect, Normal Mood Skin Exam: Warm, Dry, Intact, Normal Color, No Rash Course - Vital Signs Last Recorded V/S: Last Vital Signs Temp 36.8 C 05/09/19 11:48 Pulse 76 05/09/19 11:48 Resp 16 05/09/19 11:48 BP 133/88 05/09/19 11:48 Pulse Ox 98 05/09/19 11:48 - Orders/Labs/Meds Labs: Laboratory Tests 05/09/19 05/09/19 05/09/19 Range/Units 12:12 12:12 12:12 WBC 6.5 (4.0-10.0) x10^3/uL RBC 5.28 (4.5-6.0) x10^6/uL Hgb 16.2 (14.0-18.0) g/dL Hct 46.1 (40.0-52.0) % MCV 87.3 (78.0-93.0) fL MCH 30.7 (26.0-32.0) pg MCHC 35.1 (32.0-36.0) g/dL RDW Coeff of Scotty 13.2 (10.0-15.0) % Plt Count 305 (130-400) x10^3/uL Neut % (Auto) 54.2 (50.0-80.0) % Lymph % (Auto) 31.8 (25.0-50.0) % [place] % (Auto) 10.3 (2.0-11.0) % Eos % (Auto) 3.1 (0.0-4.0) % Baso % (Auto) 0.6 (0.2-1.2) % PT 9.9 L (10.0-12.8) SEC INR 0.9 L (2.0-3.5) Sodium 140 (136-145) mmol/L Potassium 4.4 (3.5-5.1) mmol/L Chloride 104 (98-107) mmol/L Carbon Dioxide 25 (21-32) mmol/L Anion Gap 15.4 (10-20) mmol/L BUN 16 (7-18) mg/dL Creatinine 1.3 (0.70-1.30) mg/dL Est Cr Clr Drug Dosing TNP Estimated GFR (MDRD) > 60 Glucose 87 (74-106) mg/dL Calcium 8.7 (8.5-10.1) mg/dL Corrected Calcium 8.86 (8.5-10.1) mg/dL Total Bilirubin 0.4 (0.2-1.0) mg/dL AST 15 (15-37) U/L ALT 32 (16-63) U/L Alkaline Phosphatase 132 H (46-116) U/L Total Protein 8.1 (6.4-8.2) g/dL Albumin 3.8 (3.4-5.0) g/dL Globulin 4.3 Albumin/Globulin Ratio 0.88 TSH, Ultra Sensitive 1.837 (0.358-3.74) uIU/mL Urine Color (YELLOW) Urine Appearance (CLEAR) Urine pH (5.0-8.0) Ur Specific [place] Urine Protein (NEGATIVE) mg/dL Urine Glucose (UA) (NEGATIVE) mg/dL Urine Ketones (NEGATIVE) mg/dL Urine Occult Blood (NEGATIVE) Urine Nitrite (NEGATIVE) Urine Bilirubin (NEGATIVE) Urine Urobilinogen (0.2) EU/dL Ur Leukocyte Esterase (NEGATIVE) Urine RBC (NOT SEEN) /HPF Urine WBC (NOT SEEN) /HPF Ur Squamous Epith Cells (NEGATIVE) /HPF Urine Bacteria (NEGATIVE) /HPF Hyaline Casts (NEGATIVE) /HPF Granular Casts (NEGATIVE) /HPF Urine Mucus (NEGATIVE) /LPF Urine Opiates Screen (NEGATIVE) Ur Buprenorphine Scrn (NEGATIVE) Ur Oxycodone Screen (NEGATIVE) Ur EDDP (Meth Metab) (NEGATIVE) Urine Methadone Screen (NEGATIVE) Acetaminophen 0 L (10-30) ug/ml Ur Barbituates Screen (NEGATIVE) Ur Tricyclics Screen (NEGATIVE) Ur Phencyclidine Scrn (NEGATIVE) Ur Amphetamines Screen (NEGATIVE) U Methamphetamines Scrn (NEGATIVE) Urine MDMA Screen (NEGATIVE) U Benzodiazepines Scrn (NEGATIVE) Urine Cocaine Screen (NEGATIVE) U Marijuana (THC) Screen (NEGATIVE) Ethyl Alcohol 3 (0-3) mg/dL 05/09/19 05/09/19 Range/Units 12:33 12:33 WBC (4.0-10.0) x10^3/uL RBC (4.5-6.0) x10^6/uL Hgb (14.0-18.0) g/dL Hct (40.0-52.0) % MCV (78.0-93.0) fL MCH (26.0-32.0) pg MCHC (32.0-36.0) g/dL RDW Coeff of Scotty (10.0-15.0) % Plt Count (130-400) x10^3/uL Neut % (Auto) (50.0-80.0) % Lymph % (Auto) (25.0-50.0) % [place] % (Auto) (2.0-11.0) % Eos % (Auto) (0.0-4.0) % Baso % (Auto) (0.2-1.2) % PT (10.0-12.8) SEC INR (2.0-3.5) Sodium (136-145) mmol/L Potassium (3.5-5.1) mmol/L Chloride (98-107) mmol/L Carbon Dioxide (21-32) mmol/L Anion Gap (10-20) mmol/L BUN (7-18) mg/dL Creatinine (0.70-1.30) mg/dL Est Cr Clr Drug Dosing Estimated GFR (MDRD) Glucose (74-106) mg/dL Calcium (8.5-10.1) mg/dL Corrected Calcium (8.5-10.1) mg/dL Total Bilirubin (0.2-1.0) mg/dL AST (15-37) U/L ALT (16-63) U/L Alkaline Phosphatase (46-116) U/L Total Protein (6.4-8.2) g/dL Albumin (3.4-5.0) g/dL Globulin Albumin/Globulin Ratio TSH, Ultra Sensitive (0.358-3.74) uIU/mL Urine Color Dark yellow H (YELLOW) Urine Appearance Slightly cloudy H (CLEAR) Urine pH 5.5 (5.0-8.0) Ur Specific [place] >=1.030 Urine Protein Negative (NEGATIVE) mg/dL Urine Glucose (UA) Negative (NEGATIVE) mg/dL Urine Ketones Trace H (NEGATIVE) mg/dL Urine Occult Blood Negative (NEGATIVE) Urine Nitrite Negative (NEGATIVE) Urine Bilirubin Negative (NEGATIVE) Urine Urobilinogen 0.2 (0.2) EU/dL Ur Leukocyte Esterase Negative (NEGATIVE) Urine RBC 0-5 (NOT SEEN) /HPF Urine WBC 0-5 (NOT SEEN) /HPF Ur Squamous Epith Cells Not seen (NEGATIVE) /HPF Urine Bacteria Rare (NEGATIVE) /HPF Hyaline Casts Occasional H (NEGATIVE) /HPF Granular Casts Occasional H (NEGATIVE) /HPF Urine Mucus Few H (NEGATIVE) /LPF Urine Opiates Screen Negative (NEGATIVE) Ur Buprenorphine Scrn Negative (NEGATIVE) Ur Oxycodone Screen Negative (NEGATIVE) Ur EDDP (Meth Metab) Negative (NEGATIVE) Urine Methadone Screen Negative (NEGATIVE) Acetaminophen (10-30) ug/ml Ur Barbituates Screen Negative (NEGATIVE) Ur Tricyclics Screen Negative (NEGATIVE) Ur Phencyclidine Scrn Negative (NEGATIVE) Ur Amphetamines Screen Negative (NEGATIVE) U Methamphetamines Scrn Negative (NEGATIVE) Urine MDMA Screen Negative (NEGATIVE) U Benzodiazepines Scrn Negative (NEGATIVE) Urine Cocaine Screen Negative (NEGATIVE) U Marijuana (THC) Screen Negative (NEGATIVE) Ethyl Alcohol (0-3) mg/dL Departure - Departure Time of Disposition: 14:10 Disposition: DC/Tfer to Psych Hosp/Unit 65 Condition: Good Clinical Impression: Schizotypal personality disorder, Depression, Suicidal ideation, Schizoaffective disorder - Discharge Information Referrals: Odilon Freed NP [Primary Care Provider] - Forms: ED Department Discharge - Problem List Review Problem List Initiated/Reviewed/Updated: Yes - Assessment/Plan Plan: Pt. was accepted by [facility]. All pertinent paperwork, including hold and medical documentation was faxed to the facility. He will be transported by Law Enforcement. All questions were answered.
[2019-05-09 12:43] LABS: BUPRENORPHINE,URINE NEGATIVE (NEGATIVE); MARIJUANA,URINE NEGATIVE (NEGATIVE); METHYLENEDIOXYMETHAMP,UR NEGATIVE (NEGATIVE); PHENCYCLIDINE,URINE NEGATIVE (NEGATIVE)
[2019-05-09 12:48] LABS: ANION GAP 15.4 mmol/L (10-20); CHLORIDE,CL 104 mmol/L (98-107); SODIUM,NA 140 mmol/L (136-145)
[2019-05-09 12:55] LABS: ACETAMINOPHEN 0 ug/ml (10-30)
== END 2019-05-09 14:16 ==
LOC: VM.ED 11:45
DX: F21 Schizotypal disorder (principal); F25.9 Schizoaffective disorder, unspecified; F32.9 Major depressive disorder, single episode, unspecified; F41.9 Anxiety disorder, unspecified; Z79.899 Other long term (current) drug therapy; Z91.018 Allergy to other foods; Z91.030 Bee allergy status
CPT/HCPCS: 36415; 80053; 80305-QW; 81001; 84443; 85025; 85610; 99285; G0480

== ENCOUNTER 2020-06-27 13:16 | Emergency (ER) | payer MEDICARE, MEDICAID ==
[2020-06-27] MEDS ORDERED: Lidocaine 2% Jelly 5 ML Tube TOP ONE (13:47)
--- NOTE | 2020-06-27 14:07 | EDM.PDOC ---
ED HPI GENERAL MEDICAL PROBLEM - General Chief Complaint: ENT Problem Stated Complaint: DRY SOCKET/TOOTH PULLED Time Seen by Provider: 06/27/20 13:25 Source of Information: Reports: Patient History Limitations: Reports: No Limitations - History of Present Illness INITIAL COMMENTS - FREE TEXT/NARRATIVE: Comes into the emergency department post tooth extraction dental pain. Patient states that he had his tooth extracted earlier in the week and was provided hydrocodone with a follow-up appointment this upcoming Monday. Patient states things been going fairly well however starting late yesterday he started developing discomfort and pain in the back left molar region where the tooth had been extracted. He states that the pain and discomfort has slowly progressed. He states is a throbbing sensation. Anytime he eats it does cause more discomfort and pain. He also states that the last hydrocodone that he took did not help her discomfort. Patient did not feel like waiting until Monday to have his mouth evaluated. Patient has not been washing his mouth out and has been trying to avoid eating on that side. Any fever, dizziness, numbness, blurred vision, increased swelling to the lower jaw, or foul smell coming from the mouth. Patient states he is also on antibiotics and has been taking them as prescribed. Patient also denies any COVID-19 symptoms and said he has been relatively healthy. Onset: Gradual Quality: Reports: Ache, Throbbing Severity: Moderate Improves with: Reports: Immobilization Worsens with: Reports: Eating Associated Symptoms: Reports: No Other Symptoms Left Lower Jaw Pain Score (Numeric/FACES): 8 - Related Data Allergies Allergy/AdvReac Type Severity Reaction Status Date / Time bee venom protein (honey bee) Allergy Anaphylactic Verified 06/27/20 13:49 Shock yvan Allergy Rash Verified 06/27/20 13:49 Home Meds: Home Meds Venlafaxine [Effexor XR] 150 mg PO DAILY 03/27/19 [History] diphenhydrAMINE [Benadryl] 50 mg PO DAILY 03/27/19 [History] fluPHENAZine HCl [fluPHENAZine] 1 mg PO BEDTIME 03/27/19 [History] Venlafaxine [Effexor] 75 mg PO DAILY 05/09/19 [History] Past Medical History HEENT History: Reports: Impaired Vision Cardiovascular History: Reports: None Respiratory History: Reports: None Gastrointestinal History: Reports: Other (See Below) Other Gastrointestinal History: RECENT HX OF NAUSEA AND VOMITING Genitourinary History: Reports: Hydronephrosis, Other (See Below) Other Genitourinary History: Congenital Kidney Problem Musculoskeletal History: Reports: Back Pain, Chronic Neurological History: Reports: Headaches, Chronic, Migraines Psychiatric History: Reports: Anxiety, Depression, Schizophrenia, Suicide Attempt, Suicidal Ideation Other Psychiatric History: personality disorder. schizotypal personality disorder Endocrine/Metabolic History: Reports: Obesity/BMI 30+ Hematologic History: Reports: None Immunologic History: Reports: None Oncologic (Cancer) History: Reports: None - Past Surgical History Head Surgeries/Procedures: Reports: None HEENT Surgical History: Reports: Adenoidectomy, Tonsillectomy Male Surgical History: Reports: Nephrectomy ED ROS GENERAL - Review of Systems Review Of Systems: Comprehensive ROS is negative, except as noted in HPI. Constitutional: Reports: No Symptoms Respiratory: Reports: No Symptoms Cardiovascular: Reports: No Symptoms Endocrine: Reports: No Symptoms GI/Abdominal: Reports: No Symptoms : Reports: No Symptoms Musculoskeletal: Reports: No Symptoms Skin: Reports: No Symptoms Neurological: Reports: No Symptoms Psychiatric: Reports: No Symptoms Hematologic/Lymphatic: Reports: No Symptoms Immunologic: Reports: No Symptoms ED EXAM, GENERAL - Physical Exam Exam: See Below Exam Limited By: No Limitations General Appearance: Alert, WD/WN, No Apparent Distress Eye Exam: Bilateral Eye: PERRL Ears: Normal External Exam, Normal Canal, Hearing Grossly Normal Ear Exam: Bilateral Ear: Auricle Normal, Canal Normal, TM normal Nose: Normal Inspection, Normal Mucosa, No Blood Throat/Mouth: Normal Inspection, Normal Oropharynx, Normal Voice, No Airway Compromise, Other (left lower back molar extraction- well healing gum appearance. Large amount of particles noted within the extraction site. No nerve ending exposure ) Head: Atraumatic, Normocephalic Neck: Normal Inspection, Supple, Non-Tender, Full Range of Motion Extremities: Normal Inspection, Normal Range of Motion, Non-Tender, Normal Capillary Refill Neurological: Alert, Oriented Psychiatric: Normal Affect, Normal Mood Skin Exam: Warm, Dry, Intact, Normal Color Course - Vital Signs Last Recorded V/S: Last Vital Signs Temp 36.8 C 06/27/20 13:20 Pulse 121 H 06/27/20 13:20 Resp 16 06/27/20 13:20 BP 149/99 H 06/27/20 13:20 Pulse Ox 96 06/27/20 13:20 - Orders/Labs/Meds Meds: Medications Discontinued Medications Generic Name Dose Route Start Last Admin Trade Name Adilene PRN Reason Stop Dose Admin Lidocaine HCl 5 ml 06/27/20 13:47 06/27/20 13:58 Xylocaine 2% Jelly TOP 06/27/20 13:48 1 applic ONETIME ONE Administration Departure - Departure Time of Disposition: 14:10 Disposition: Home, Self-Care 01 Condition: Good Clinical Impression: Dry socket, Status post tooth extraction - Discharge Information Instructions: Dental Dry Socket, [id number] Forms: ED Department Discharge Additional Instructions: 1. clean the extracted tooth area after eating 2. increase your water intake 3. Continue all at home medications 4. Activity and diet as tolerated 5. Can take over the counter Tylenol for any pain or discomfort 6. Follow up with PCP if symptoms continue, return, or progress 7. Call with any questions or concerns Sepsis Event Note (ED) - Evaluation Sepsis Screening Result: No Definite Risk - Focused Exam Vital Signs: Vital Signs Temp Pulse Resp BP Pulse Ox 06/27/20 13:20 36.8 C 121 H 16 149/99 H 96 - Assessment/Plan Assessment:: 1. Dental pain 2. Dry socket 3. Foreign body in extraction site Plan: 1. Cleaning and removal for foreign contents with saline pressure used to area 2. Lidocaine gel and packing completed to the area 3. Patient is advised to continue with antibiotic and pain medication provided via dentist 4. Patient was also encouraged to keep his appointment on Monday for close follow up 5. Patient and nursing staff was updated regarding the plan of care 6. Education provided the patient regarding activity, diet, rest, [id number] medication modalities, and follow-up care was provided 7. Patient and family are agreeable to the above plan of care 8. All questions and concerns were addressed with the patient and family prior to discharge
== END 2020-06-27 14:06 | disposition home or self-care (01) ==
LOC: VM.ED 13:16
DX: M27.3 Alveolitis of jaws (principal); F41.9 Anxiety disorder, unspecified; F32.9 Major depressive disorder, single episode, unspecified; E66.9 Obesity, unspecified; Z68.30 Body mass index [BMI] 30.0-30.9, adult; Z98.818 Other dental procedure status; Z91.018 Allergy to other foods; Z91.030 Bee allergy status; Z79.899 Other long term (current) drug therapy
CPT/HCPCS: 99282; 99283-GF